=== PATIENT | male | born 1995 | race Caucasian/White ===

== ENCOUNTER 2021-07-25 05:18 | Emergency (ER) | payer MEDICAID ==
[~2021-07-25] VITALS: Ht 182.9 cm; Wt 82.0 kg
[2021-07-25] MEDS ORDERED: ONDANSETRON 4MG ODT PO ONE (06:30)
[2021-07-25] MEDS ORDERED: MORPHINE SULFATE 10 MG/ML CPJ IM ONE (06:30)
[2021-07-25 08:13] VITALS: BP 109/82
[2021-07-25] MEDS ORDERED: KETOROLAC 60MG/2ML VIAL IM ONE (08:15)
[2021-07-25] MEDS ORDERED: IBUP-2030 MT (09:01)
[2021-07-25] MEDS ORDERED: HYDR-4001 MT (09:01)
== END 2021-07-25 09:23 | disposition home or self-care (01) ==
LOC: ER 05:18
DX: S81.042A Puncture wound with foreign body, left knee, initial encounter (principal); M79.662 Pain in left lower leg; M79.672 Pain in left foot; M79.604 Pain in right leg; M79.89 Other specified soft tissue disorders; X95.9XXA Assault by unspecified firearm discharge, initial encounter; Y93.89 Activity, other specified; Y92.89 Other specified places as the place of occurrence of the external cause
CPT/HCPCS: 73562; 73590; 73630; 93970; 96372; 99284; J1885; J2270; Q0162

== ENCOUNTER 2024-07-28 08:55 | Emergency (ER) | payer SELFPAY ==
[~2024-07-28] VITALS: Ht 185.4 cm; Wt 89.0 kg
[~2024-07-28 08:55] MED LIST: HYDR-4001 MT; IBUP-2030 MT
[2024-07-28 08:59] VITALS: O2SAT 100
[2024-07-28] MEDS ORDERED: BO1 TP (09:39)
[2024-07-28] MEDS: TETANUS, DIPHTHERIA, PERTUSSIS VAC/PF 0.5ML (>10YR OLD) IM ONE (09:54)
[2024-07-28 10:00] VITALS: BP 123/84; PULSE 88; RESP 18; TEMP 36.55848; O2SAT 100
== END 2024-07-28 10:06 | disposition home or self-care (01) ==
LOC: ER 08:55
DX: T24.211A Burn of second degree of right thigh, initial encounter (principal); T31.0 Burns involving less than 10% of body surface; X08.8XXA Exposure to other specified smoke, fire and flames, initial encounter; Y93.89 Activity, other specified; Y92.89 Other specified places as the place of occurrence of the external cause; Y99.8 Other external cause status
CPT/HCPCS: 16020; 99282; Z7610 ×2

== ENCOUNTER 2024-08-02 09:01 | Emergency (ER) | payer MEDICAID ==
[~2024-08-02] VITALS: Ht 177.8 cm; Wt 92.0 kg
[~2024-08-02 09:01] MED LIST changes: +BO1 TP
[2024-08-02 09:13] VITALS: O2SAT 99
[2024-08-02] MEDS: TETANUS, DIPHTHERIA, PERTUSSIS VAC/PF 0.5ML (>10YR OLD) IM ONE (11:08)
[2024-08-02] MEDS ORDERED: SILV20CR13 TP (11:40)
[2024-08-02] MEDS ORDERED: IBUP-2030 MT (11:40)
[2024-08-02] MEDS ORDERED: TOPUD MT (11:48)
[2024-08-02] MEDS: SILVER SULFADIAZINE 1% CREAM 50GM TOP SCH (12:46)
[2024-08-02 12:50] VITALS: BP 126/61; PULSE 70; RESP 18; TEMP 36.89184; O2SAT 99
== END 2024-08-02 13:54 | disposition home or self-care (01) ==
LOC: ER 09:15
DX: T24.211A Burn of second degree of right thigh, initial encounter (principal); Z79.899 Other long term (current) drug therapy; X08.8XXA Exposure to other specified smoke, fire and flames, initial encounter; Y93.89 Activity, other specified; Y92.89 Other specified places as the place of occurrence of the external cause; Y99.8 Other external cause status
CPT/HCPCS: 16000; 90471; 90715; 99283